=== PATIENT | male | born 1990 | race Two or more races ===

== ENCOUNTER 2016-12-08 00:30 | Emergency (ER) | payer OTHER ==
[~2016-12-08] VITALS: Ht 152.4 cm; Wt 57.0 kg
[2016-12-08 00:35] VITALS: BP 108/65
== END 2016-12-08 02:59 | disposition home or self-care (01) ==
LOC: SUATTDRO 01:40 → ED 02:43
PROVIDERS: ATTEND Hospitalist
DX: F10.120 Alcohol abuse with intoxication, uncomplicated (principal)
CPT/HCPCS: 99283

== ENCOUNTER 2020-07-23 15:53 | Emergency (ER) | payer OTHER ==
[~2020-07-23] VITALS: Ht 152.4 cm; Wt 64.5 kg
[2020-07-23 15:55] VITALS: BP 124/81
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
[2020-07-23] MEDS ORDERED: LIDOCAINE-MPF 2% ,5ML ONE (16:21)
[2020-07-23] MEDS ORDERED: LIDOCAINE 2%, 20ML SQ ONE (16:30)
--- NOTE | 2020-07-23 17:25 | NUR ---
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
--- NOTE | 2020-07-23 17:58 | NUR ---
DISCHARGE INSTRUCTIONS REVIEWED WITH PT. ALL QUESTIONS ANSWERED AT THIS TIME
== END 2020-07-23 18:00 | disposition home or self-care (01) ==
LOC: ED 16:35
DX: S62.231A Other displaced fracture of base of first metacarpal bone, right hand, initial encounter for closed fracture (principal); S63.114A Dislocation of metacarpophalangeal joint of right thumb, initial encounter; V89.2XXA Person injured in unspecified motor-vehicle accident, traffic, initial encounter; Y93.89 Activity, other specified; Y92.828 Other wilderness area as the place of occurrence of the external cause; Y99.8 Other external cause status
CPT/HCPCS: 26605; 99284